=== PATIENT | female | born 1960 | race Caucasian/White ===

== ENCOUNTER 2018-04-21 18:18 | Inpatient (IN) | payer OTHER ==
[2018-04-21] MEDS: KETOROLAC 15 MG INJ IV (18:51)
[2018-04-21] MEDS: NEOMYC/POLYMYX/BACIT 30 GM OINT TOP (18:52)
[2018-04-21] MEDS: SOD CHLORIDE 0.9% 1,000 ML IV (18:52)
[2018-04-21 19:30] LABS: ADD MAN DIFF? NO
[2018-04-21 19:35] LABS: BASOPHIL # 0.1 10^3/ul (0.0-0.1); BASOPHILS % 0.5 % (0.0-2.0); EOSINOPHILS # 0.5 10^3/ul (0.0-0.5); EOSINOPHILS % 3.9 % (0.0-7.0); HEMATOCRIT 46.3 % (37.0-47.0); HEMOGLOBIN 14.7 g/dl (12.0-16.0); LYMPHOCYTES # 1.3 10^3/ul (0.8-2.9); LYMPHOCYTES % 10.7 % (15.0-51.0); MEAN CORPUSCULAR HEMOGLOBIN 29.3 pg (29.0-33.0); MEAN CORPUSCULAR HGB CONC 31.7 g/dl (32.0-37.0); MEAN CORPUSCULAR VOLUME 92.2 fl (82.0-101.0); MEAN PLATELET VOLUME 10.3 fl (7.4-10.4); MONOCYTE # 0.7 10^3/ul (0.3-0.9); MONOCYTES % 5.8 % (0.0-11.0); NEUTROPHIL # 9.3 10^3/ul (1.6-7.5); NEUTROPHILS % 78.7 % (39.0-77.0); PLATELET COUNT 222 10^3/UL (140-415); RED BLOOD COUNT 5.02 10^6/ul (4.20-5.40); RED CELL DISTRIBUTION WIDTH 12.3 % (11.5-14.5)
[2018-04-21 19:35] LABS: WHITE BLOOD COUNT 11.8 10^3/ul (4.8-10.8)
[2018-04-21 21:31] LABS: PROTIME 12.2 Sec (11.9-14.9)
[2018-04-21 21:46] LABS: ANION GAP 12 (8-16); BLOOD UREA NITROGEN 23 mg/dl (7-20); CALCIUM 8.4 mg/dl (8.4-10.2); CARBON DIOXIDE 29 mmol/L (21-31); CHLORIDE 107 mmol/L (97-110); CREATININE 0.83 mg/dl (0.44-1.00); GLUCOSE 95 mg/dl (70-220); POTASSIUM 3.9 mmol/L (3.5-5.1); SODIUM 144 mmol/L (135-144)
[2018-04-22] MEDS ORDERED: ONDANSETRON 4 MG INJ IV
[2018-04-22] MEDS: ONDANSETRON 4 MG INJ IV ×2 (00:11→20:52)
[2018-04-22] MEDS: morphine 4 MG/ML VIAL IV ×3 (00:15→08:31)
[2018-04-22 05:46] LABS: ADD MAN DIFF? NO
[2018-04-22 05:52] LABS: BASOPHILS % 0.5 % (0.0-2.0); EOSINOPHILS # 0.4 10^3/ul (0.0-0.5); EOSINOPHILS % 5.2 % (0.0-7.0); HEMOGLOBIN 12.2 g/dl (12.0-16.0); LYMPHOCYTES % 25.6 % (15.0-51.0); MEAN CORPUSCULAR HEMOGLOBIN 29.8 pg (29.0-33.0); MEAN CORPUSCULAR HGB CONC 32.1 g/dl (32.0-37.0); MEAN CORPUSCULAR VOLUME 92.9 fl (82.0-101.0); MEAN PLATELET VOLUME 10.6 fl (7.4-10.4); MONOCYTE # 0.9 10^3/ul (0.3-0.9); MONOCYTES % 11.8 % (0.0-11.0); NEUTROPHIL # 4.4 10^3/ul (1.6-7.5); NEUTROPHILS % 56.6 % (39.0-77.0); PLATELET COUNT 156 10^3/UL (140-415); RED BLOOD COUNT 4.09 10^6/ul (4.20-5.40); RED CELL DISTRIBUTION WIDTH 12.3 % (11.5-14.5)
[2018-04-22 05:52] LABS: WHITE BLOOD COUNT 7.7 10^3/ul (4.8-10.8)
[2018-04-22 06:03] LABS: ALANINE AMINOTRANSFERASE 28 IU/L (13-69); ALBUMIN 3.1 g/dl (3.3-4.9); ALKALINE PHOSPHATASE 70 IU/L (42-121); ANION GAP 8 (8-16); ASPARTATE AMINO TRANSFERASE 24 IU/L (15-46); BILIRUBIN,INDIRECT 0.5 mg/dl (0-1.1); BILIRUBIN,TOTAL 0.5 mg/dl (0.2-1.3); BLOOD UREA NITROGEN 21 mg/dl (7-20); CALCIUM 8.6 mg/dl (8.4-10.2); CARBON DIOXIDE 32 mmol/L (21-31); CHLORIDE 110 mmol/L (97-110); GLUCOSE 95 mg/dl (70-220); PHOSPHORUS 3.1 mg/dl (2.5-4.9); POTASSIUM 3.4 mmol/L (3.5-5.1); SODIUM 147 mmol/L (135-144); TOTAL PROTEIN 5.3 g/dl (6.1-8.1)
[2018-04-22] MEDS: HEPARIN 5,000 UNIT/0.5 ML VIAL SC ×2 (08:32→20:17)
[2018-04-22] MEDS ORDERED: CYCLOBENZAPRINE 10 MG TAB PO (10:30)
[2018-04-22] MEDS: LEFLUNOMIDE 20 MG TAB PO (10:30)
[2018-04-22] MEDS: FUROSEMIDE 40 MG TAB PO (10:30)
[2018-04-22] MEDS: LORATADINE 10 MG TAB PO (10:30)
[2018-04-22] MEDS ORDERED: ASPIRIN (EC) 81 MG TAB PO (10:30)
[2018-04-22] MEDS: BENAZEPRIL 40 MG TAB PO (11:55)
[2018-04-22] MEDS: POTASSIUM CHLORIDE 100 ML IVPB (11:56)
[2018-04-22] MEDS: HYDROCODONE/APAP (5/325) TAB PO ×2 (11:56→20:53)
[2018-04-22] MEDS: HYDROmorphONE 0.5 MG/0.5 ML SYG IV ×4 (12:36→23:19)
[2018-04-22] MEDS: POTASSIUM CHLORIDE (SR) 20 MEQ TAB PO (17:01)
[2018-04-23] MEDS: HYDROCODONE/APAP (5/325) TAB PO ×4 (00:38→21:25)
[2018-04-23] MEDS: HYDROmorphONE 0.5 MG/0.5 ML SYG IV ×2 (04:39→08:01)
[2018-04-23 05:03] LABS: ADD MAN DIFF? NO
[2018-04-23 05:04] LABS: BASOPHIL # 0.1 10^3/ul (0.0-0.1); BASOPHILS % 0.7 % (0.0-2.0); EOSINOPHILS # 0.5 10^3/ul (0.0-0.5); EOSINOPHILS % 6.6 % (0.0-7.0); HEMATOCRIT 37.7 % (37.0-47.0); HEMOGLOBIN 11.7 g/dl (12.0-16.0); LYMPHOCYTES # 1.4 10^3/ul (0.8-2.9); LYMPHOCYTES % 18.9 % (15.0-51.0); MEAN CORPUSCULAR HEMOGLOBIN 29.2 pg (29.0-33.0); MEAN PLATELET VOLUME 10.2 fl (7.4-10.4); MONOCYTE # 0.8 10^3/ul (0.3-0.9); MONOCYTES % 11.6 % (0.0-11.0); NEUTROPHIL # 4.5 10^3/ul (1.6-7.5); NEUTROPHILS % 61.9 % (39.0-77.0); PLATELET COUNT 146 10^3/UL (140-415); RED BLOOD COUNT 4.01 10^6/ul (4.20-5.40)
[2018-04-23 05:04] LABS: WHITE BLOOD COUNT 7.3 10^3/ul (4.8-10.8)
[2018-04-23 05:23] LABS: ANION GAP 8 (8-16); BLOOD UREA NITROGEN 11 mg/dl (7-20); CALCIUM 8.7 mg/dl (8.4-10.2); CARBON DIOXIDE 35 mmol/L (21-31); CHLORIDE 105 mmol/L (97-110); CREATININE 0.73 mg/dl (0.44-1.00); GLUCOSE 134 mg/dl (70-220); MAGNESIUM 1.9 mg/dl (1.7-2.5); PHOSPHORUS 3.2 mg/dl (2.5-4.9); POTASSIUM 4.8 mmol/L (3.5-5.1); SODIUM 143 mmol/L (135-144)
[2018-04-23] MEDS: PANTOPRAZOLE (EC) 40 MG TAB PO (07:20)
[2018-04-23] MEDS: LORATADINE 10 MG TAB PO (09:00)
[2018-04-23] MEDS: FUROSEMIDE 40 MG TAB PO (09:00)
[2018-04-23] MEDS: BENAZEPRIL 40 MG TAB PO (09:35)
[2018-04-23] MEDS: ASPIRIN (EC) 81 MG TAB PO (09:40)
[2018-04-23] MEDS: HEPARIN 5,000 UNIT/0.5 ML VIAL SC ×2 (09:42→21:26)
[2018-04-23] MEDS: LEFLUNOMIDE 20 MG TAB PO (11:46)
[2018-04-23] MEDS ORDERED: oxyCODONE 5 MG TAB PO (12:00)
[2018-04-23] MEDS: morphine 2 MG INJ IV (18:45)
[2018-04-24] MEDS: morphine 2 MG INJ IV ×2 (01:47→05:38)
[2018-04-24] MEDS: PANTOPRAZOLE (EC) 40 MG TAB PO (07:20)
[2018-04-24] MEDS: FUROSEMIDE 40 MG TAB PO (09:00)
[2018-04-24] MEDS: ASPIRIN (EC) 81 MG TAB PO (09:00)
[2018-04-24] MEDS: LORATADINE 10 MG TAB PO (09:00)
[2018-04-24] MEDS: HYDROCODONE/APAP (5/325) TAB PO ×2 (09:53→16:05)
[2018-04-24] MEDS: BENAZEPRIL 40 MG TAB PO (09:56)
[2018-04-24] MEDS: LEFLUNOMIDE 20 MG TAB PO (09:58)
[2018-04-24] MEDS: HEPARIN 5,000 UNIT/0.5 ML VIAL SC ×2 (10:00→20:55)
[2018-04-24] MEDS: PREGABALIN 50 MG CAP PO ×2 (12:37→20:53)
[2018-04-24] MEDS: MAGNESIUM CITRATE 300 ML BTL PO (12:37)
[2018-04-24] MEDS: morphine (ER) 15 MG TAB PO ×2 (12:38→20:53)
[2018-04-24] MEDS ORDERED: morphine LIQ (10 MG/5 ML) CUP PO (15:00)
[2018-04-25] MEDS: HYDROCODONE/APAP (5/325) TAB PO (04:19)
[2018-04-25 05:12] LABS: ADD MAN DIFF? NO
[2018-04-25 05:15] LABS: WHITE BLOOD COUNT 6.4 10^3/ul (4.8-10.8)
[2018-04-25 05:15] LABS: BASOPHIL # 0.1 10^3/ul (0.0-0.1); BASOPHILS % 0.8 % (0.0-2.0); EOSINOPHILS # 0.5 10^3/ul (0.0-0.5); EOSINOPHILS % 7.8 % (0.0-7.0); HEMATOCRIT 36.8 % (37.0-47.0); HEMOGLOBIN 11.7 g/dl (12.0-16.0); LYMPHOCYTES # 2.1 10^3/ul (0.8-2.9); LYMPHOCYTES % 32.9 % (15.0-51.0); MEAN CORPUSCULAR HEMOGLOBIN 29.7 pg (29.0-33.0); MEAN CORPUSCULAR HGB CONC 31.8 g/dl (32.0-37.0); MEAN CORPUSCULAR VOLUME 93.4 fl (82.0-101.0); MEAN PLATELET VOLUME 9.9 fl (7.4-10.4); MONOCYTE # 0.7 10^3/ul (0.3-0.9); MONOCYTES % 10.9 % (0.0-11.0); NEUTROPHILS % 47.4 % (39.0-77.0); PLATELET COUNT 173 10^3/UL (140-415); RED BLOOD COUNT 3.94 10^6/ul (4.20-5.40); RED CELL DISTRIBUTION WIDTH 11.9 % (11.5-14.5)
[2018-04-25 05:47] LABS: ANION GAP 3 (8-16); BLOOD UREA NITROGEN 13 mg/dl (7-20); CALCIUM 8.6 mg/dl (8.4-10.2); CARBON DIOXIDE 35 mmol/L (21-31); CHLORIDE 106 mmol/L (97-110); CREATININE 0.68 mg/dl (0.44-1.00); GLUCOSE 102 mg/dl (70-220); MAGNESIUM 2.4 mg/dl (1.7-2.5); PHOSPHORUS 4.1 mg/dl (2.5-4.9); POTASSIUM 4.5 mmol/L (3.5-5.1); SODIUM 139 mmol/L (135-144)
[2018-04-25] MEDS: LEFLUNOMIDE 20 MG TAB PO (08:16)
[2018-04-25] MEDS: PANTOPRAZOLE (EC) 40 MG TAB PO (08:16)
[2018-04-25] MEDS: LORATADINE 10 MG TAB PO (08:17)
[2018-04-25] MEDS: PREGABALIN 50 MG CAP PO ×3 (08:17→20:46)
[2018-04-25] MEDS: ASPIRIN (EC) 81 MG TAB PO (08:17)
[2018-04-25] MEDS: morphine (ER) 15 MG TAB PO ×2 (08:19→20:46)
[2018-04-25] MEDS: HEPARIN 5,000 UNIT/0.5 ML VIAL SC ×2 (08:32→20:48)
[2018-04-25] MEDS: BENAZEPRIL 40 MG TAB PO (09:00)
[2018-04-25] MEDS: LORAZEPAM 2 MG INJ IV (22:08)
[2018-04-26] MEDS: PANTOPRAZOLE (EC) 40 MG TAB PO (05:31)
[2018-04-26 05:43] LABS: ADD MAN DIFF? NO
[2018-04-26 05:50] LABS: BASOPHILS % 0.7 % (0.0-2.0); EOSINOPHILS # 0.5 10^3/ul (0.0-0.5); EOSINOPHILS % 8.6 % (0.0-7.0); HEMATOCRIT 38.7 % (37.0-47.0); HEMOGLOBIN 12.3 g/dl (12.0-16.0); LYMPHOCYTES # 1.7 10^3/ul (0.8-2.9); LYMPHOCYTES % 29.1 % (15.0-51.0); MEAN CORPUSCULAR HEMOGLOBIN 29.6 pg (29.0-33.0); MEAN CORPUSCULAR HGB CONC 31.8 g/dl (32.0-37.0); MEAN CORPUSCULAR VOLUME 93.3 fl (82.0-101.0); MEAN PLATELET VOLUME 9.9 fl (7.4-10.4); MONOCYTE # 0.7 10^3/ul (0.3-0.9); MONOCYTES % 11.4 % (0.0-11.0); NEUTROPHIL # 2.9 10^3/ul (1.6-7.5); PLATELET COUNT 177 10^3/UL (140-415); RED BLOOD COUNT 4.15 10^6/ul (4.20-5.40)
[2018-04-26 05:50] LABS: WHITE BLOOD COUNT 5.8 10^3/ul (4.8-10.8)
[2018-04-26 06:06] LABS: ALANINE AMINOTRANSFERASE 27 IU/L (13-69); ALBUMIN 3.1 g/dl (3.3-4.9); ALBUMIN/GLOBULIN RATIO 1.29; ALKALINE PHOSPHATASE 71 IU/L (42-121); ANION GAP 8 (8-16); ASPARTATE AMINO TRANSFERASE 25 IU/L (15-46); BILIRUBIN,INDIRECT 0.6 mg/dl (0-1.1); BILIRUBIN,TOTAL 0.6 mg/dl (0.2-1.3); BLOOD UREA NITROGEN 18 mg/dl (7-20); CARBON DIOXIDE 32 mmol/L (21-31); CHLORIDE 106 mmol/L (97-110); CREATININE 0.78 mg/dl (0.44-1.00); GLUCOSE 103 mg/dl (70-220); POTASSIUM 5.3 mmol/L (3.5-5.1); SODIUM 141 mmol/L (135-144); TOTAL PROTEIN 5.5 g/dl (6.1-8.1)
[2018-04-26 06:14] LABS: MAGNESIUM 2.3 mg/dl (1.7-2.5)
[2018-04-26] MEDS: NA POLYST SULFON 15 GM/60 ML BTL PO (07:30)
[2018-04-26] MEDS: LORATADINE 10 MG TAB PO (08:57)
[2018-04-26] MEDS: morphine (ER) 15 MG TAB PO (08:59)
[2018-04-26] MEDS: BENAZEPRIL 40 MG TAB PO (09:00)
[2018-04-26] MEDS: ASPIRIN (EC) 81 MG TAB PO (09:00)
[2018-04-26] MEDS: LEFLUNOMIDE 20 MG TAB PO (09:01)
[2018-04-26] MEDS: PREGABALIN 50 MG CAP PO ×2 (09:11→12:59)
[2018-04-26] MEDS: HEPARIN 5,000 UNIT/0.5 ML VIAL SC (09:11)
== END 2018-04-26 18:00 | DRG 563 ==
LOC: MS1 20:51 → E/R 18:18
PROC: 2W3TX1Z Immobilization of Left Foot using Splint (ICD-10-PCS; principal; 2018-04-21)
PROC: 2W3SX1Z Immobilization of Right Foot using Splint (ICD-10-PCS; 2018-04-21)
DX: S92.001A Unspecified fracture of right calcaneus, initial encounter for closed fracture (principal); S92.002A Unspecified fracture of left calcaneus, initial encounter for closed fracture; S82.64XA Nondisplaced fracture of lateral malleolus of right fibula, initial encounter for closed fracture; M06.9 Rheumatoid arthritis, unspecified; I11.0 Hypertensive heart disease with heart failure; I50.9 Heart failure, unspecified; W11.XXXA Fall on and from ladder, initial encounter; Y92.018 Other place in single-family (private) house as the place of occurrence of the external cause
CPT/HCPCS: 36415; 71045; 72131; 73110-RT; 73610-RT; 73630; 73630-LT; 80048; 80053; 83735; 84100; 85025; 85610; 96374; 96375; 97165; 99285-25

== ENCOUNTER 2018-05-07 19:12 | Emergency (ER) | payer OTHER | END 2018-05-07 22:20 | disposition home or self-care (01) | LOC: E/R 22:20 | DX: S92.902D Unspecified fracture of left foot, subsequent encounter for fracture with routine healing (principal); I10 Essential (primary) hypertension; I50.9 Heart failure, unspecified; J45.909 Unspecified asthma, uncomplicated; F17.210 Nicotine dependence, cigarettes, uncomplicated; X58.XXXD Exposure to other specified factors, subsequent encounter; Z79.01 Long term (current) use of anticoagulants; Z79.82 Long term (current) use of aspirin | CPT/HCPCS: 29505; 99282-25 ==

== ENCOUNTER 2018-06-01 16:41 | Emergency (ER) | payer OTHER ==
[2018-06-01] MEDS: IBUPROFEN 600 MG TAB PO (17:21)
== END 2018-06-01 21:15 | disposition home or self-care (01) ==
LOC: E/R 16:41
DX: M79.631 Pain in right forearm (principal); R40.2252 Coma scale, best verbal response, oriented, at arrival to emergency department; J45.909 Unspecified asthma, uncomplicated; I50.9 Heart failure, unspecified; I10 Essential (primary) hypertension; R40.2142 Coma scale, eyes open, spontaneous, at arrival to emergency department; R40.2362 Coma scale, best motor response, obeys commands, at arrival to emergency department; Z79.82 Long term (current) use of aspirin; Z87.891 Personal history of nicotine dependence
CPT/HCPCS: 93005; 99283-25